=== PATIENT | female | born 1965 | race Caucasian/White ===

== ENCOUNTER 2020-09-01 05:30 | Outpatient (CLI) | payer OTHER, SELFPAY ==
[2020-09-01] VITALS (27 sets, daily range): BP systolic 143–185; BP diastolic 75–94; PULSE 78–103; RESP 12–30; TEMP 36.4–37.1; O2SAT 93–100
--- NOTE | ~2020-09-01 | CT_ITS ---
EXAMINATION: CT abdomen pelvis wo con EXAM DATE: 09/01/2020 06:08 INDICATION: Left flank pain. TECHNIQUE: Spiral CT of the abdomen and pelvis was performed without contrast. Axial, coronal and sag ittal images were reviewed. The dose-length product (DLP) for this examination was 1561.32 mGy-cm. The exposure was tailored according to patient size (auto mA exposure control), and iterative reconst ruction (ASIR) was used as additional dose reduction technique. Comparison is made to prior examinati on from 12/27/2016. FINDINGS: There is bilobulated density distal aspect left ureter, could be a 7 mm stone, or 2 contigu ous 3-4 mm stones. There is mild obstructive nephropathy. Additional left inferior calyceal 6 mm ston e and punctate 2 mm right inferior calyceal stone. The uterus is anteverted and morphologically melo l. The bladder is undistended at time of imaging. There is hepatic steatosis without suspicious fo mendoza lesion identified. Spleen, adrenal glands, pancreas are unremarkable. Gallbladder is unremarkabl e. No biliary obstruction. There is no retroperitoneal or pelvic lymphadenopathy. The appendix is not positively visualized. There is no pericecal inflammatory change to suggest appe ndicitis. The stomach and small bowel are unremarkable. Small duodenal diverticulum. There is expec jeannine amount of colonic stool. No free intraperitoneal gas. The heart is normal in size. There are no pericardial or pleural effusions. The lung bases are unremarkable. There are no osteoblastic or osteolytic lesions identified. IMPRESSION: 1. Stone or stones at left UVJ, region measuring 7 mm. Mild obstructive nephropathy. 2. Bilateral nephrolithiasis. 3. Small duodenal diverticulum. 4. Hepatic steatosis. Urologist consultants would appreciate KUB as baseline for follow-up, treatment planning. Reviewed, dictated and finalized at location [facility]. IMPRESSION: 1. Stone or stones at left UVJ, region measuring 7 mm. Mild obstructive nephro rj. 2. Bilateral nephrolithiasis. 3. Small duodenal diverticulum. 4. Hepatic steatosis. Urologist consultants would appreciate KUB as baseline for follow-up, treatment planning.
--- NOTE | ~2020-09-01 | XR_ITS ---
XR retrograde pyelogram LT DATE: 09/02/2020 16:18 INDICATION: Left kidney stone TECHNIQUE: Lateral right pyelogram images 26.2 seconds fluoroscopy time 919.59 radcm 2 COMPARISON: 09/01/2020 CT abdomen pelvis FINDINGS: Left ureter is catheterized ureterorenoscopy. There is moderate prominence of the left uret er. The left renal collecting system is not opacified. IMPRESSION: Limited examination revealing moderate left hydroureter Recommend reference to the urologist procedure report Reviewed, dictated and finalized at [facility]. Reviewed, dictated and finalized at location [facility].
[2020-09-01 05:57] LABS: Add Urine Microscopic? YES; Appearance Urine Cloudy (Clear); Bacteria Urine Trace /hpf; Bilirubin Urine Negative (Negative); Blood Urine 3+ (Negative); Calcium Oxalate Crystals Urine Present /hpf; Color Urine Amber (Yellow); Glucose Urine UA Negative (Negative); Ketones Urine Negative (Negative); Leukocyte Esterase Ur 1+ LEU/UL (Negative); Mucus Urine Few /lpf; Nitrate Urine Negative (Negative); Protein Urine 2+ mg/dL (Negative); RBC Urine >75 /hpf (0-2); Specific Grav Ur 1.024 (1.001-1.035); Squamous Epithelial Cell Urine Many /hpf (Few); WBC Urine 21-30 /hpf
--- NOTE | 2020-09-01 06:00 | ED.GENADULT ---
HPI - General Adult General Chief complaint: Nausea/Vomiting/Diarrhea Stated complaint: kidney stone Time Seen by Provider: 09/01/20 05:51 History of Present Illness HPI narrative: Patient is a 55-year-old female that presents to emergency department with chief complaint of left flank pain. The patient reports she has a long running history of kidney stones and has had required lithotripsy before in the past. Patient states been about 2 years since her last lithotripsy. Patient reports that she started having flank pain and has been unable to get comfortable patient states that she has noticed that it is difficult for her to urinate now and this feels exactly like whenever she has had stones before in the past patient does report that she has had some nausea and vomiting Related Data Allergies Allergy/AdvReac Type Severity Reaction Status Date / Time Penicillins Allergy Mild N/V - LONG - Verified 09/01/20 06:00 HIVES/RASH banana Allergy Unknown SWELLING - Verified 09/01/20 06:00 N/V watermelon Allergy Unknown LONG - N/V Verified 09/01/20 06:00 [place] Allergy Unknown SOB Uncoded 09/01/20 06:00 Review of Systems Review of Systems: Narrative: A 10 system review of systems was completed on the patient and is negative except for what is stated in the HPI. Nursing and ancillary documentation was reviewed. PMFSH Comments Past medical history significant for prior kidney stones requiring lithotripsy Social history the patient denies illicit drug use Exam Narrative: Exam Narrative: GENERAL: Well-appearing, well-nourished, and in no acute distress. HEAD: Normocephalic, atraumatic. EYES: PERRLA and EOMI. ENT: Nares clear, no rhinorrhea or epistaxis. Mucous membranes moist. NECK: Supple. CHEST: Clear to auscultation. No respiratory distress. HEART: Regular rate and rhythm. No murmur heard. Normal peripheral pulses. ABDOMEN: Soft, nontender, nondistended, normal active bowel sounds. EXTREMITIES: Normal range of motion. No edema. SKIN: Warm, dry, no rash. NEURO: No focal deficits. Alert and oriented x3. PSYCH: Normal mood and affect. Course Course Emergency Course: Patient CT scan showed a 7 mm stone. Patient was feeling better the case was discussed with patient's primary urologist who will take the patient to the operating room for procedural management of her kidney stone Vital Signs Vital signs: Vital Signs Temperature 36.4 C 09/01/20 05:38 Pulse Rate 78 09/01/20 05:38 Respiratory Rate 14 09/01/20 05:38 Blood Pressure 185/94 H 09/01/20 05:38 Pulse Oximetry 100 09/01/20 05:38 Temperature 37.1 C 09/01/20 06:42 Pulse Rate 81 09/01/20 06:39 Respiratory Rate 18 09/01/20 06:39 Blood Pressure 175/77 H 09/01/20 06:39 Pulse Oximetry 100 09/01/20 06:39 Medical Decision Making Vital Signs Vital Signs: Vital Signs Temperature 36.4 C 09/01/20 05:38 Pulse Rate 78 09/01/20 05:38 Respiratory Rate 14 09/01/20 05:38 Blood Pressure 185/94 H 09/01/20 05:38 Pulse Oximetry 100 09/01/20 05:38 Temperature 37.1 C 09/01/20 06:42 Pulse Rate 81 09/01/20 06:39 Respiratory Rate 18 09/01/20 06:39 Blood Pressure 175/77 H 09/01/20 06:39 Pulse Oximetry 100 09/01/20 06:39 Lab Data Result diagrams: 09/01/20 05:42 09/01/20 05:42 Labs: Lab Results 09/01/20 09/01/20 09/01/20 Range/Units 05:42 05:42 05:43 WBC 11.8 H (4.5-10.0) K/mm3 RBC 4.65 (4.2-5.4) M/mm3 Hgb 13.3 (12.0-15.0) g/dL Hct 40.6 (37.0-47.0) % MCV 87.3 (80-100) fl MCH 28.6 (26-34) pg MCHC 32.8 (32-36) g/dl RDW 13.4 (11.5-14.5) % Plt Count 380 H (150-375) k/mm3 MPV 10.3 (7.4-10.4) fl Immature Gran % (Auto) 0.3 (0-0.5) % Neut % (Auto) 55.2 (45.5-73.1) % Lymph % (Auto) 32.1 (18.3-44.2) % [place] % (Auto) 9.0 H (2.6-8.5) % Eos % (Auto) 2.9 (0-4.4) % Baso % (Auto) 0.5 (0.2-1.2) % Lymph
[2020-09-01 06:17] LABS: Alanine Aminotransferase 28 U/L (4-35); Albumin Level 4.9 g/dL (3.5-5.1); Alkaline Phosphatase 79 U/L (38-126); Anion Gap 11 mmol/L (8-16); Aspartate Amino Transferase 42 U/L (14-36); Basophils Absolute Auto 0.1 K/mm3 (0.0-0.1); Basophils Percent Auto 0.5 % (0.2-1.2); Bilirubin,Total 0.5 mg/dL (0.2-1.3); Blood Urea Nitrogen 10 mg/dL (7-17); Calcium 9.2 mg/dL (8.4-10.2); Carbon Dioxide 25 mmol/L (22-30); Chloride 102 mmol/L (98-107); Eosinophils Absolute Auto 0.3 K/mm3 (0-0.3); Eosinophils Percent Auto 2.9 % (0-4.4); Estimated CRCL calculation 127 ml/min; Estimated Glomerular Filt Rate > 60; Glucose 129 mg/dL (65-105); Hematocrit 40.6 % (37.0-47.0); Hemoglobin 13.3 g/dL (12.0-15.0); Immature Granulocyte Absolute 0.04 K/mm3 (0.00-0.031); Immature Granulocyte Percent A 0.3 % (0-0.5); Lipase 115 U/L (23-300); Lymphocytes Absolute Auto 3.78 K/mm3 (0.9-3.2); Lymphocytes Percent Auto 32.1 % (18.3-44.2); Mean Corpuscular HGB Conc 32.8 g/dl (32-36); Mean Corpuscular Hemoglobin 28.6 pg (26-34); Mean Corpuscular Volume 87.3 fl (80-100); Mean Platelet Volume 10.3 fl (7.4-10.4); Monocytes Absolute Auto 1.1 K/mm3 (0.1-0.6); Neutrophils Absolute Auto 6.5 K/mm3 (1.3-6.7); Neutrophils Percent Auto 55.2 % (45.5-73.1); Platelet Count Result 380 k/mm3 (150-375); Potassium 3.9 mmol/L (3.4-5.0); Red Blood Count 4.65 M/mm3 (4.2-5.4); Red Cell Distribution Width 13.4 % (11.5-14.5); Sodium 138 mmol/L (137-145); White Blood Count 11.8 K/mm3 (4.5-10.0)
[2020-09-01] MEDS: SODIUM CHLORIDE 0.9% IV 1,000 ML 999 ML IV CONT (06:17)
[2020-09-01] MEDS: ONDANSETRON INJ 4 MG/2 ML VIAL IV PUSH (06:18)
[2020-09-01] MEDS: HYDROmorphone HCL INJ (*CRX) 1 MG/ML SYR IV PUSH (06:18)
--- NOTE | 2020-09-01 07:26 | P.HP_ITS ---
History of Present Illness History of Present Illness Consent: Risks, benefits, and alternatives have been discussed and questions answered. Patient agrees to proceed with procedure. Chief complaint: kidney stone Narrative: Jes Neely is a 55 year old female with a history of recurring urolithiasis that has undergone both ESWL and endoscopic extraction in the past. Earlier this morning she awoke with acute left flank pain reminiscent of the urolithiasis. Imaging in the ER reveals an obstructing 7 mm left distal ureteral stone and a similar size nonobstructing left renal calculus. She has had nausea and vomiting but no fevers chills or gross hematuria. After discussion of options she elects to proceed with ureteroscopy with possible laser lithotripsy, ureteral stone extraction and possible ureteral stent placement. Review of Systems Cardiovascular: Cardiovascular: Denies chest pain, Denies lightheadedness, Denies palpitations and Denies dyspnea Respiratory: Respiratory: Denies dyspnea Gastrointestinal: Gastrointestinal: Denies diarrhea, Denies nausea and Denies vomiting Genitourinary: Genitourinary: Denies hematuria and Denies dysuria Endocrine: Endocrine: Denies palpitations Meds Home Medications and Allergies Allergies Allergy/AdvReac Type Severity Reaction Status Date / Time Penicillins Allergy Mild N/V - LONG - Verified 09/01/20 06:00 HIVES/RASH banana Allergy Unknown SWELLING - Verified 09/01/20 06:00 N/V watermelon Allergy Unknown LONG - N/V Verified 09/01/20 06:00 [place] Allergy Unknown SOB Uncoded 09/01/20 06:00 Vital Signs Vital Signs - 24 hr 09/01/20 05:38 09/01/20 06:39 09/01/20 06:42 Temperature 97.6 F 98.7 F Pulse Rate 78 81 Respiratory Rate 14 18 Blood Pressure 185/94 H 175/77 H Pulse Oximetry 100 100 Exam Const: General: no acute distress Resp: Effort & Inspection: normal respiratory effort GI: Inspection: non-distended GI Palp: No abdominal tenderness and No Guarding due to palpation present (GI) Auscultation: normal bowel sounds Assessment and Plan Assessment and plan (1) Left renal stone: Code(s): N20.0 - Calculus of kidney Status: Acute (2) Left ureteral stone: Code(s): N20.1 - Calculus of ureter Status: Acute Assessment and Plan: * Cystoscopy, left ureteroscopy with possible laser lithotripsy, ureteral stone extraction and possible ureteral stent placement
--- NOTE | 2020-09-01 11:35 | SUR.PREOP ---
Patient arrived into preop per stretcher. Refuses to sign consent because it includes a stent. Expressed intent to drive herself home after surgery and asks us to look the other way. Informed patient we will not do surgery if she has no ride home. Dr Gonzalez informed and will come speak with patient.
--- NOTE | 2020-09-01 13:37 | SUR.PREOP ---
Patient unable to arrange for a ride home so is discharge to drive self home without surgery. No signs of drowsiness from earlier pain medications.
== END 2020-09-02 14:10 | disposition home or self-care (01) ==
LOC: ANHED 07:19 → ANHSURGERY 07:20
PROVIDERS: Emergency Provider Emergency Medicine; PCP Internal Medicine; Visit Provider Urology
DX: K76.0 Fatty (change of) liver, not elsewhere classified (principal); K57.10 Diverticulosis of small intestine without perforation or abscess without bleeding; N20.2 Calculus of kidney with calculus of ureter
CPT/HCPCS: 36415; 74176; 74420; 80053; 81001; 81025; 83690; 85025; 87086; 87088; 96361; 96374; 96375; 99211; 99285; G0463; J1170; J2405; J7030

== ENCOUNTER 2020-09-02 14:30 | Day surgery (SDC) | payer OTHER, SELFPAY ==
[2020-09-02] VITALS (7 sets, daily range): BP systolic 120–159; BP diastolic 72–89; PULSE 76–92; RESP 16–18; TEMP 36.1–36.2; O2SAT 98–100; BMI 38.0; BMI 41.1
--- NOTE | 2020-09-02 15:17 | WPDANESEPPF ---
Anes - Initial Pre Proc Eval Procedure: Operation Date: 09/02/20 16:00 Proposed Procedures p Cystoscopy,Left Retrograde Pyelogram,Left Ureteroscopy,Left Stone Extraction, Possible Ureteral Stent Placement - Heber Gonzalez MD s Possible Holmium Laser Procedure - Heber Gonzalez MD Date/Time: 09/02/20 15:17 Surgeon: Heber Gonzalez MD Pre Op Diagnosis: Left Urethral Stone Patient Data Age: 55 Gender: F Height: 5 ft 4.5 in Weight: 110.3 kg Last Vital Signs Temp 36.1 C L 09/02/20 14:58 Pulse 92 09/02/20 14:58 Resp 18 09/02/20 14:58 BP 159/84 H 09/02/20 14:58 Pulse Ox 99 09/02/20 14:58 Allergies Allergy/AdvReac Type Severity Reaction Status Date / Time Penicillins Allergy Mild N/V - LONG - Verified 09/02/20 14:34 HIVES/RASH banana Allergy Unknown SWELLING - Verified 09/02/20 14:34 N/V watermelon Allergy Unknown LONG - N/V Verified 09/02/20 14:34 [place] Allergy Unknown SOB Uncoded 09/02/20 14:34 Home Medications Medication Instructions Recorded Confirmed Type ciprofloxacin HCl 500 mg PO Q12H #14 tablet 09/01/20 09/02/20 Rx hydrocodone-acetaminophen 1 - 2 tablet PO Q6H PRN #20 tablet 09/01/20 09/02/20 Rx Patient hx anesthesia problems: none Family hx anesthesia problems: none PMFSH Past Medical History Medical History (Updated 09/02/20 @ 15:18 by Lazaro Villalobos MD) Morbid obesity Surgical History Surgical History (Updated 09/02/20 @ 15:18 by Lazaro Villalobos MD) Hx of cystoscopy Social History Social History Smoking status: Never smoker Alcohol intake: never Substance use: never Substance use type: does not use Living arrangements: with family Spiritual care concerns: No Anes - Eval Final PreProcedure Day of Procedure 09/02/20 15:17 Patient weight: morbidly obese Heart: regular rate and rhythm Lungs: clear to auscultation Airway: Mallampati scale class II Neurological: alert and oriented Last oral intake: >/= 8 hours ASA classification: III Emergent: no Anesthetic plan: proceed Anesthesia type and monitoring: general LMA and standard monitoring Informed Consent: The patient's anesthetic plan and its attendant risks and benefits were discussed with the patient/family/POA. Questions were solicited and answers provided to the satisfaction of the patient/family/POA.
[2020-09-02] MEDS: LACTATED RINGERS 1,000 ML 30 ML IV CONT (15:25)
--- NOTE | 2020-09-02 15:44 | WPDHPUPDATE1 ---
History and Physical Update Update Date/Time: 09/02/20 15:44 History and Physical has been reviewed, including an updated exam of the patient. There are NO changes in the patient's condition. Risks, benefits, and alternatives have been discussed and questions answered. Patient agrees to proceed with procedure.
[2020-09-02] MEDS: levoFLOXacin 500 MG/D5W 100 ML 500 MG/100 ML BAG 100 MG IVPB (15:50)
[2020-09-02] MEDS: LIDOCAINE HCL 2% GEL UROJET 10 ML PKG MUCOUS MEM (16:03)
[2020-09-02] MEDS: KETOROLAC 30 MG/ML VIAL (*BKC) IV PUSH (16:11)
--- NOTE | 2020-09-02 16:19 | PM.PROC ---
Procedure Note - Detailed Date of procedure: 09/02/20 Pre-op diagnosis: Left Urethral Stone Post-op diagnosis: same (Spontaneously passed left distal ureteral calculus) Procedure performed: patient is brought to the operative suite where she has prepped draped in routine sterile fashion while in dorsal lithotomy position. 2% xylocaine jelly was introduced intraurethrally and systemic sedation is administered per the anesthesia department. Cystoscopy is undertaken with a 19 F rigid cystoscope. Bladder neck and urethra endoscopically normal. There is some edema and hyperemia of the intramural portion of the left ureter and left ureteral orifice. The remainder of the bladder was without hyperemia or mucosal abnormalities. A 0.035 in glidewire was advanced in the left renal pelvis and the distal ureter was dilated with an 8 F 10 F dilator. Ureteroscopy with a short tapered semi-rigid ureteral scope was undertaken to the left ureteropelvic junction and there are no ureteral calculi, suggesting that the patient has spontaneously passed her 7 mm distal stone. I did perform retrograde pyelogram and saw no obvious filling defects. Scopes wires removed the patient was taken recovery room in good condition Anesthesia: GLMA Surgeon: Heber Gonzalez MD Estimated blood loss (mL): 0 Drains: No Packing: No Pathology: none sent Complications: No immediate complications Condition: stable Disposition: PACU
--- NOTE | 2020-09-02 18:18 | SUR.PHASEII ---
1745: patient is unhooked from monitors and waiting for [facility]BER for ride home w/ daughter.
== END 2020-09-02 18:13 | disposition home or self-care (01) ==
PROVIDERS: PCP Internal Medicine; Visit Provider Urology
PROC: (CPT 52352; principal; 2020-09-02 16:00)
DX: N20.1 Calculus of ureter (principal); Z68.41 Body mass index [BMI] 40.0-44.9, adult; E66.01 Morbid (severe) obesity due to excess calories
CPT/HCPCS: 52005; A9270; C1769; J1100; J1885; J1956; J2250; J2405; J2704; J3010; J7120; Q9966

== ENCOUNTER 2021-01-21 17:54 | Emergency (ER) | payer OTHER, SELFPAY ==
[2021-01-21 18:00] VITALS: BP 174/96; PULSE 96; RESP 20; TEMP 35.8; O2SAT 98
[2021-01-21 19:21] VITALS: BP 170/88; PULSE 87; RESP 18; O2SAT 99
--- NOTE | 2021-01-21 20:49 | ED.WOUNDLAC ---
HPI - Wound/Laceration General Chief Complaint: Wound/Laceration Stated Complaint: finger laceration Time Seen by Provider: 01/21/21 19:50 Source: patient Mode of arrival: ambulatory Limitations: no limitations History of Present Illness HPI narrative: This is a 55 year old female that presents to the ER for laceration to the left 4th finger sustained just prior to arrival. Reports she accidentally cut her finger with hedge trimmers. Does involve a distal portion of the nail. She is not up to date on tetanus. Denies decreased ROM or numbness. Related Data Allergies Allergy/AdvReac Type Severity Reaction Status Date / Time Penicillins Allergy Mild N/V - LONG - Verified 01/21/21 19:21 HIVES/RASH banana Allergy Unknown SWELLING - Verified 01/21/21 19:21 N/V watermelon Allergy Unknown LONG - N/V Verified 01/21/21 19:21 [place] Allergy Unknown SOB Uncoded 01/21/21 19:21 Review of Systems Review of Systems: CONSTITUTIONAL: Denies fever SKIN: Reports laceration MUSCULOSKELETAL: Denies joint pain, or myalgia. NEUROLOGIC: Denies numbness All systems reviewed & are unremarkable except as noted in HPI and below PMFSH Past Medical History Medical History (Updated 01/21/21 @ 21:56 by Katharina Muhammad PA-C) Morbid obesity Surgical History Surgical History (Updated 09/02/20 @ 15:18 by Lazaro Villalobos MD) Hx of cystoscopy Social History Social History Smoking status: Never smoker Alcohol intake: never Substance use: never Substance use type: does not use Spiritual care concerns: No Exam Narrative: GENERAL: Well-appearing, well-nourished, and in no acute distress. HEAD: Normocephalic, atraumatic. EYES: EOMI. EXTREMITIES: Normal range of motion. No edema. 1cm linear laceration into subcutaneous tissue to the tip of the left 4th finger, does involve a small portion of the distal nail. Normal radial pulses. Normal sensation SKIN: Warm, dry, no rash. NEURO: No focal deficits. Alert and oriented x3. PSYCH: Normal mood and affect Course Vital Signs Vital signs: Vital Signs Temperature 96.5 F L 01/21/21 18:00 Pulse Rate 96 01/21/21 18:00 Respiratory Rate 20 01/21/21 18:00 Blood Pressure 174/96 H 01/21/21 18:00 Pulse Oximetry 98 01/21/21 18:00 Temperature 96.5 F L 01/21/21 18:00 Pulse Rate 87 01/21/21 19:21 Respiratory Rate 18 01/21/21 19:21 Blood Pressure 170/88 H 01/21/21 19:21 Pulse Oximetry 99 01/21/21 19:21 Procedures Laceration Laceration 1: Date: 01/21/21 Time: 21:56 Site: hand Side (If applicable): left Size (cm): 1 Description: linear Depth: simple, single layer Local Anesthetic: lidocaine 1% Amount of anesthesia used (mL): 3 Pre-repair: irrigated ====== Skin Level ====== Skin layer closed with: nylon Size (cm): 4-0 Number of sutures: 2 Technique: simple, interrupted ====== Subcutaneous Layer ====== ====== Muscle Layer ====== ====== Tendon Layer ====== MDM - Wound/Laceration MDM Narrative Medical decision making narrative: Patient presents to the ER for laceration to the left 4th finger sustained just prior to arrival. Does involve a small portion of the distal part of the nail. Wound was cleansed and closed with sutures. She was updated on tetanus. She was educated on wound care. She is to follow up with her PCP. She was given warnings to return to the ER Critical Care Time Critical Care Time Critical Care Time: No Discharge Plan Discharge Clinical Impression: Laceration Patient Disposition: Home, Self-Care Condition: Stable Instructions: Care For Your Stitches (ED), Laceration (ED) Additional Instructions: Return to the emergency department if you experience fever, redness or swelling of your wound, abnormal drainage from your wound, or any other symptoms that are
[2021-01-21] MEDS: TETANUS,DIPHTHERIA,AC PERTUSSIS ADULT (0.5 ML) BOOSTRIX IM (21:25)
== END 2021-01-21 22:07 | disposition home or self-care (01) ==
PROVIDERS: Emergency Provider Emergency Medicine; PCP Internal Medicine
DX: S61.215A Laceration without foreign body of left ring finger without damage to nail, initial encounter (principal); Z23 Encounter for immunization; E66.01 Morbid (severe) obesity due to excess calories; Z68.37 Body mass index [BMI] 37.0-37.9, adult; W27.1XXA Contact with garden tool, initial encounter
CPT/HCPCS: 12001; 90471; 90715; 99282

== ENCOUNTER 2021-08-07 20:51 | Observation (INO) | payer OTHER, SELFPAY ==
--- NOTE | ~2021-08-07 | XR_ITS ---
XR abdomen/kub 1V 08/08/2021 01:02 Indication: Renal stones Procedure: KUB Comparison: CT dated 08/07/2021 Findings: Stone in the lower pole of the left kidney is visualized. There is a stone at the L3 level on the left consistent with left UPJ stone, although size underestimated compared with CT. Right alta l stone not appreciated on this examination. Bowel gas pattern nonobstructive. Impression: 1: Left renal and UPJ stones. Reviewed, dictated and finalized at location [facility]. Impression: 1: Left renal and UPJ stones.
--- NOTE | ~2021-08-07 | CT_ITS ---
EXAMINATION: CT abdomen pelvis wo con EXAM DATE: 08/07/2021 23:00 INDICATION: Left flank pain. History kidney stones. TECHNIQUE: Spiral CT of the abdomen and pelvis was performed without contrast. Axial, coronal and sag ittal images were reviewed. The dose-length product (DLP) for this examination was 679.41 mGy-cm. T he exposure was tailored according to patient size (auto mA exposure control), and iterative reconstr uction (ASIR) was used as additional dose reduction technique. Comparison is made to prior examinatio n from 09/01/2020. FINDINGS: There is a 1 cm stone at the left ureteropelvic junction with mild left-sided obstructive nephropathy. Additional punctate left inferior calyceal stones. There is a 3 x 5 mm right inferior ca lyceal stone. The uterus is unremarkable. The bladder is unremarkable. The liver, spleen, adrenal glands and schultz creas are unremarkable. Gallbladder is unremarkable. No biliary obstruction. There is no retroperi toneal or pelvic lymphadenopathy. There are no findings to suggest appendicitis. There is small duodenal diverticulum. There is expec jeannine amount of colonic stool. No free intraperitoneal gas. The heart is normal in size. There are no pericardial or pleural effusions. The lung bases are unremarkable. There are no osteoblastic or osteolytic lesions identified. IMPRESSION: 1. Left UPJ 1 cm stone, mild obstructive nephropathy. Baseline KUB recommended. 2. Bilateral nephrolithiasis. 3. Small duodenal diverticulum. Reviewed, dictated and finalized at location . IMPRESSION: 1. Left UPJ 1 cm stone, mild obstructive nephropathy. Baseline KUB recommended . 2. Bilateral nephrolithiasis. 3. Small duodenal diverticulum.
--- NOTE | 2021-08-07 21:10 | PC.NURSE ---
Pt walked outside prior to triage, stating she felt sick.
[2021-08-07 21:23] VITALS: BP 142/74; PULSE 78; RESP 19; TEMP 36.4; O2SAT 100
[2021-08-07 21:45] LABS: Basophils Absolute Auto 0.1 K/mm3 (0.0-0.1); Basophils Percent Auto 0.5 % (0.2-1.2); Eosinophils Absolute Auto 0.2 K/mm3 (0-0.3); Eosinophils Percent Auto 1.4 % (0-4.4); Hematocrit 40.7 % (37.0-47.0); Immature Granulocyte Absolute 0.04 K/mm3 (0.00-0.031); Immature Granulocyte Percent A 0.3 % (0-0.5); Lymphocytes Absolute Auto 2.22 K/mm3 (0.9-3.2); Lymphocytes Percent Auto 16.8 % (18.3-44.2); Mean Corpuscular HGB Conc 31.9 g/dl (32-36); Mean Corpuscular Hemoglobin 28.6 pg (26-34); Mean Corpuscular Volume 89.5 fl (80-100); Mean Platelet Volume 10.2 fl (7.4-10.4); Monocytes Absolute Auto 0.8 K/mm3 (0.1-0.6); Monocytes Percent Auto 6.1 % (2.6-8.5); Neutrophils Absolute Auto 9.9 K/mm3 (1.3-6.7); Neutrophils Percent Auto 74.9 % (45.5-73.1); Platelet Count Result 363 k/mm3 (150-375); Red Blood Count 4.55 M/mm3 (4.2-5.4); Red Cell Distribution Width 13.2 % (11.5-14.5); White Blood Count 13.2 K/mm3 (4.5-10.0)
[2021-08-07 21:54] LABS: Alanine Aminotransferase 22 U/L (4-35); Albumin Level 4.7 g/dL (3.5-5.1); Alkaline Phosphatase 112 U/L (38-126); Anion Gap 7 mmol/L (8-16); Aspartate Amino Transferase 31 U/L (14-36); Bilirubin,Total 0.2 mg/dL (0.2-1.3); Blood Urea Nitrogen 16 mg/dL (7-17); Calcium 9.2 mg/dL (8.4-10.2); Carbon Dioxide 29 mmol/L (22-30); Chloride 101 mmol/L (98-107); Estimated CRCL calculation 92 ml/min; Estimated Glomerular Filt Rate > 60; Glucose 155 mg/dL (65-110); Potassium 4.4 mmol/L (3.4-5.0); Sodium 137 mmol/L (137-145)
--- NOTE | 2021-08-07 23:25 | ED.ABDPAIN ---
HPI - Abdominal Pain General Chief Complaint: Abdominal Pain Stated Complaint: Left flank pain see ag for kidney stones Time Seen by Provider: 08/07/21 22:53 Source: patient Mode of arrival: ambulatory Limitations: no limitations History of Present Illness HPI narrative: Patient is a 56-year-old female who presents the ED with report of left flank pain. Patient reports a history of kidney stones with her last occurrence 1 year ago[address] She sees Dr. Gonzalez, but has seen other providers in their group. She mentions she has required lithotripsies in the past. States she was supposed to have a routine appointment with Dr. Gonzalez last Saturday but her appointment got rescheduled. Tonight around 7 PM while she was working remotely she had sudden onset of pain in her left flank, radiating around to her left lower abdomen. She also reported having nausea, vomiting, and difficulty emptying her bladder. She denies any pain or burning with urination or any notable hematuria. No fever, chills, diarrhea, constipation, chest pain, shortness of breath. Related Data Allergies Allergy/AdvReac Type Severity Reaction Status Date / Time Penicillins Allergy Mild N/V - LONG - Verified 01/21/21 19:21 HIVES/RASH banana Allergy Unknown SWELLING - Verified 01/21/21 19:21 N/V watermelon Allergy Unknown LONG - N/V Verified 01/21/21 19:21 [place] Allergy Unknown SOB Uncoded 01/21/21 19:21 Review of Systems Review of Systems: CONSTITUTIONAL: Denies fever, chills, or sweats. CARDIOVASCULAR: Denies chest pain. RESPIRATORY: Denies cough or dyspnea. GASTROINTESTINAL: Reports L lower abd pain, nausea, vomiting. Denies constipation, diarrhea. GENITOURINARY: Reports trouble emptying bladder. Denies dysuria or hematuria. SKIN: Denies rash or itching. MUSCULOSKELETAL: Reports left flank pain. Denies joint pain, or myalgia. NEUROLOGIC: Denies headache, numbness, or weakness. All systems reviewed & are unremarkable except as noted in HPI and below PMFSH Past Medical History Medical History (Updated 08/08/21 @ 02:05 by Jana Fraire PA-C) Diabetes mellitus Hyperlipidemia Hypertension Morbid obesity Nephrolithiasis Surgical History Surgical History (Updated 08/07/21 @ 23:28 by Jana Fraire PA-C) History of lithotripsy Hx of cystoscopy Social History Social History Smoking status: Never smoker Alcohol intake: never Substance use: never Substance use type: does not use Spiritual care concerns: No Exam Narrative: GENERAL: Well-nourished, non-toxic, diaphoretic, in mild acute distress. HEAD: Normocephalic, atraumatic. NECK: Supple. No adenopathy, no masses. RESPIRATORY: Airway patent, respirations nonlabored. Clear to auscultation bilaterally, no rales, rhonchi, wheezing. CARDIOVASCULAR: Regular rate and rhythm without murmurs, rubs, or gallops. Peripheral pulses 2+ and equal bilaterally. ABDOMINAL: Soft, LLQ tenderness to palpation, nondistended, no hepatosplenomegaly. Normoactive BS. L CVA tenderness to percussion. MUSCULOSKELETAL: Moves all extremities. Strength/ROM intact without gross deformities or TTP. No edema. SKIN: Warm, normal color. No rashes. NEURO: A&O X3. Speech clear. Cranial nerves II-XII grossly intact. Steady gait. No ataxic movements. PSYCHIATRIC: Appropriate mood and affect. Normal interaction. Course Consultations Consultation #1: Spoke with Dr. Ac, urology, patient presentation and work-up. Recommends keeping n.p.o. Pain control as needed. Date: 08/08/21 Time: 00:33 Consultation #2: Discussed with Dr. Nunez, hospitalist patient presentation and workup. Agrees with admission at this time. Date: 08/08/21 Time: 01:53 Vital Signs Vital signs: Vital Signs Temperature 97.6 F 08/07/21 21:23 Pulse Rate 78 08/07/21 21:23 Respiratory Rate 19 08/07/21 21:23 Blood Pressure 142/74 H 08/07/21 21:23 Pulse Oximetry 100 08/07/21 21:23
[2021-08-07] MEDS: ONDANSETRON INJ 4 MG/2 ML VIAL IV PUSH (23:31)
[2021-08-07] MEDS: MORPHINE SULFATE (*CRX) 4 MG/ML INJ IV PUSH (23:31)
[2021-08-07] MEDS: SODIUM CHLORIDE 0.9% IV 1,000 ML 999 ML IV CONT (23:32)
[2021-08-07 23:41] VITALS: BP 163/88; O2SAT 98
[2021-08-07 23:42] VITALS: O2SAT 97
[2021-08-07 23:45] VITALS: O2SAT 93
[2021-08-07 23:46] VITALS: BP 162/72; O2SAT 96
[2021-08-08] VITALS (11 sets, daily range): BP systolic 145–173; BP diastolic 67–80; PULSE 80–97; RESP 16–24; TEMP 36.3–36.6; O2SAT 96–99; BMI 39.6
[2021-08-08 01:29] LABS: Add Urine Microscopic? YES; Appearance Urine Clear (Clear); Bacteria Urine Trace /hpf; Bilirubin Urine Negative (Negative); Blood Urine 3+ (Negative); Color Urine Yellow (Yellow); Glucose Urine UA Negative (Negative); Ketones Urine Trace mg/dL (Negative); Leukocyte Esterase Ur Negative LEU/UL (Negative); Mucus Urine Rare /lpf; Nitrate Urine Negative (Negative); Protein Urine Negative (Negative); RBC Urine 21-50 /hpf (0-2); Specific Grav Ur 1.016 (1.001-1.035); Squamous Epithelial Cell Urine Occasional /hpf (Few); Urobilinogen Urine Negative mg/dL (<2.0); WBC Urine 0-3 /hpf
[2021-08-08] MEDS: HYDROmorphone HCL INJ (*CRX) 1 MG/ML SYR 0.5 MG IV PUSH (01:36)
[2021-08-08] MEDS: METOCLOPRAMIDE HCL INJ 10 MG/2 ML VIAL IV PUSH (01:37)
--- NOTE | 2021-08-08 04:00 | ADMGEN ---
This patient, Jes Neely, was admitted to Medical Room 256-. Patient/family oriented to hospital policies and general routines including ID bracelet, bed and alarms, visiting hours, pain management, procedures, bathroom and other care routines, personal items, smoking policy, room service/diet, and visiting hours. Information on how to activate the Rapid Response Team has been discussed. Patient/Family are encouraged to report perceived risks to care and to ask questions if they do not understand what they are told or what they should do.
[2021-08-08] MEDS: SODIUM CHLORIDE 0.9% IV 1,000 ML 125 ML IV CONT ×2 (04:15→11:48)
--- NOTE | 2021-08-08 07:33 | PM.IMHP ---
H&P: HPI History of Present Illness Date/Time: 08/08/21 07:33 Review of Systems Review of Systems: All systems reviewed & are unremarkable except as noted in HPI and below PMFSH Past Medical History Medical History (Updated 08/08/21 @ 07:44 by MARIKA Davis) Diabetes mellitus Hyperlipidemia Hypertension Morbid obesity Nephrolithiasis Surgical History Surgical History (Updated 08/07/21 @ 23:28 by Jana Fraire PA-C) History of lithotripsy Hx of cystoscopy Family History Family History (Updated 08/08/21 @ 04:41 by Martin Farooq RN) Mother Sleep apnea CHF (congestive heart failure) Osteoporosis Diabetes mellitus Father Diabetes mellitus CHF (congestive heart failure) Factor 5 Leiden mutation, heterozygous Renal failure Cerebrovascular accident Sibling Factor 5 Leiden mutation, heterozygous Social History Social History Smoking status: Never smoker Alcohol intake: never Substance use: never Substance use type: does not use Spiritual care concerns: No Meds Home Medications and Allergies Home Medications Medication Instructions Recorded Confirmed Type amlodipine 10 mg PO DAILY 08/08/21 08/08/21 History atorvastatin 20 mg PO HS 08/08/21 08/08/21 History fexofenadine-pseudoephedrine 1 tablet PO DAILY 08/08/21 08/08/21 History [Venessa-D 24 Hour] metformin 500 mg PO DAILY 08/08/21 08/08/21 History Allergies Allergy/AdvReac Type Severity Reaction Status Date / Time Penicillins Allergy Mild N/V - LONG - Verified 08/08/21 04:17 HIVES/RASH banana Allergy Unknown SWELLING - Verified 08/08/21 04:17 N/V watermelon Allergy Unknown LONG - N/V Verified 08/08/21 04:17 [place] Allergy Unknown SOB Uncoded 01/21/21 19:21 Vital Signs Vital Signs - 24 hr 08/07/21 21:23 08/07/21 23:41 08/07/21 23:42 Temperature 97.6 F Pulse Rate 78 Respiratory Rate 19 Blood Pressure 142/74 H 163/88 H Pulse Oximetry 100 98 97 08/07/21 23:45 08/07/21 23:46 08/08/21 00:00 Temperature Pulse Rate Respiratory Rate Blood Pressure 162/72 H Pulse Oximetry 93 96 96 08/08/21 00:01 08/08/21 00:15 08/08/21 00:47 Temperature Pulse Rate Respiratory Rate Blood Pressure 173/80 H Pulse Oximetry 96 99 98 08/08/21 01:01 08/08/21 03:18 08/08/21 03:19 Temperature Pulse Rate Respiratory Rate Blood Pressure 164/78 H Pulse Oximetry 97 98 98 08/08/21 03:21 Temperature Pulse Rate 89 Respiratory Rate 16 Blood Pressure Pulse Oximetry Exam Const: General: cooperative, healthy appearing, no acute distress, well developed, alert and awake Nutritional Appearance: well nourished Orientation/consciousness: patient oriented x3 Limitations: no limitations HENMT: Head: normal to inspection Ears: hearing grossly normal bilaterally General nose exam: Normal external nose present Mouth: Yes Normal oral and palatal mucosa present, Yes lip normal and Yes tongue normal Teeth and gingiva: abnormal tooth and associated gingiva and poor dentition Eyes: General: appearance normal, both eyes and all related structures Neck: Neck: normal visual inspection, full ROM, trachea midline and supple Chest: Chest palpation & inspection: normal inspection of the chest Resp: Effort & Inspection: normal respiratory effort and able to speak in complete sentences Auscultation: clear to auscultation bilaterally Cardio: Jugular venous distension: no JVD Rate: regular rate Rhythm: regular rhythm Heart sounds: S1 normal heart sound present and S2 normal heart sound present Peripheral pulses: Peripheral pulses 2+ throughout GI: Inspection: normal to inspection GI Palp: Yes Soft to palpation and No Tenderness to palpation present (GI) Auscultation: normal bowel sounds Skin: General skin exam: normal color and no rashes or lesions noted Lesions: no lesions Rashes: no rashes Trau
[2021-08-08 08:10] LABS: Glucose Point of Care 124 mg/dl (65-105)
[2021-08-08] MEDS: amLODIPine BESYLATE 5 MG TABLET 10 MG PO (09:26)
[2021-08-08] MEDS: LORATADINE/PSEUDOEPHEDRINE (*CRX) 10/240 MG TABLET ER 24 HR 1 TAB PO (09:26)
--- NOTE | 2021-08-08 11:02 | PM.SD2 ---
Same Day Admit/Disch: HPI History of Present Illness Chief complaint: L ureteral stone Narrative: Jes Neely is a 56 year old female with past medical history of diabetes, hyperlipidemia, hypertension, and multiple kidney stones who presented to the ED with left-sided flank pain. Patient states she was working remote and she started to get back spasms and pain in her left back that did radiate to her front abdomen. Patient stated that she was starting to have multiple episodes of nausea vomiting to the point to where the vomiting was uncontrollable and she was unable to eat or sleep. Patient stated that she has had this issue before and has had have multiple lithotripsies in the past. Patient is followed by Dr. Gonzalez. Urology has been consulted. Patient did state that the pain medications were helping her and she was able to not vomit at this time. Patient did have other social issues which she thinks that helping her to create the kidney stones. She denies any chest pain, shortness of breath, nausea, vomiting, diarrhea, constipation, weakness, fatigue. On a side note patient did state that she had labs done recently which did not come back to good. Patient also stated that she had been on metformin and amlodipine in the past and has taken herself off of them. Patient stated that she has never been diagnosed with diabetes however she stated her A1c was not very good in her doctor wanted her to do morbid diet controlled. She also stated that she has had a lipid panel in the past and was on a statin drug however she has not been taking that as well. She did start her regimen back due to her labs not being in control. Patient is being admitted to the hospital service under observation [facility] Past Medical History Medical History Diabetes mellitus Hyperlipidemia Hypertension Morbid obesity Nephrolithiasis Surgical History Surgical History History of lithotripsy Hx of cystoscopy Family History Family History Mother Sleep apnea CHF (congestive heart failure) Osteoporosis Diabetes mellitus Father Diabetes mellitus CHF (congestive heart failure) Factor 5 Leiden mutation, heterozygous Renal failure Cerebrovascular accident Sibling Factor 5 Leiden mutation, heterozygous Social History Social History Social History: Patient lives in the area with her daughter and her daughter will be her surrogate at this time. Patient wishes to be a full code. Smoking status: Never smoker Alcohol intake: never Substance use: never Substance use type: does not use Additional occupation/education comments: Remote working Gender identity (if verbalized by the patient): Female Sexual Orientation (if Verbalized by the Patient): Straight or Heterosexual Spiritual care concerns: No Agree to blood products: Yes Same Day Admit/Disch: Med Pre-admit Medications Home Medications Medication Instructions Recorded Confirmed Type amlodipine 10 mg PO DAILY 08/08/21 08/08/21 History atorvastatin 20 mg PO HS 08/08/21 08/08/21 History fexofenadine-pseudoephedrine 1 tablet PO DAILY 08/08/21 08/08/21 History [Venessa-D 24 Hour] hydrocodone-acetaminophen 1 tablet PO Q6H PRN #20 tablet 08/08/21 Rx metformin 500 mg PO DAILY 08/08/21 08/08/21 History ondansetron 4 mg PO Q6H PRN #20 tablet 08/08/21 Rx Exam Const: General: cooperative, healthy appearing, no acute distress, well developed, alert and awake Nutritional Appearance: well nourished Orientation/consciousness: patient oriented x3 Limitations: no limitations HENMT: Head: normal to inspection Ears: hearing grossly normal bilaterally General nose exam: Normal external nose present Mouth: Yes Normal oral and palatal mucosa pres
[2021-08-08 11:36] LABS: Glucose Point of Care 122 mg/dl (65-105)
--- NOTE | 2021-08-08 11:47 | WPDURCON ---
Assessment and Plan Assessment and plan (1) Left ureteral stone: Code(s): N20.1 - Calculus of ureter Status: Acute Assessment and Plan: We offered to do a Cystoscopy, left ureteroscopy with stent placement and retrograde pyelogram this afternoon with Dr. Ac, however the patient refuses and wants to wait for an ESWL. She has had a stent in the past and didn't tolerate it. I instructed her that if she could eat a regular diet and tolerate her pain on oral pain meds and zofran for nausea, she could go home this afternoon and be scheduled for a left ESWL later this week as an outpatient. She agrees with this plan. Cancel NPO diet, I changed her to clear liquids. She will need a urine culture in preparation for her lithotripsy this week. If she tolerates her clear liquids for lunch she can advance to a regular diet. Ok to discharge home if tolerating pain on [place] 5/235mg q 4-6 PRN and Zofran. We will schedule her ESWL as an outpatient this week. (2) Bilateral kidney stones: Code(s): N20.0 - Calculus of kidney Status: Acute Assessment and Plan: These are of no emergent importance at this time, we will address these stones at a later date. Urology Consult Note HPI Date Seen: 08/08/21 Requesting Physician: Yohana Nunez MD Primary Care Provider: Addy IbarraMD Consult Narrative Narrative: Jes Neely is a 56 year old female who presented to the ER last night with acute onset of left flank pain that radiated to her LLQ, accompanied by nausea and vomiting. 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 She has a history of kidney stones since she was in grade school. Most recently she had a left ureteral stone with cystoscopy in 08/[address] Gonzalez, but her stone had spontaneously passed. She has also had many lithotripsies and stents placed over the years. Her CT scan reveals a 1cm left UPJ stone, punctate left renal stones and a right 3x5mm non obstructive stone. Her KUB does visualize her stones. UA shows 3+ RBC's present, but is otherwise normal. She denies dysuria or gross hematuria. She has been NPO since arrival. Her pain is improved after Dilaudid and Zofran for nausea and vomiting. She is afebrile and has a WBC of 13.2 and creatinine of 0.70. Review of Systems Cardiovascular: Cardiovascular: Reports no additional cardiovascular complaints Respiratory: Respiratory: Reports no additional respiratory complaints Gastrointestinal: Gastrointestinal: Reports abdominal pain, Reports nausea and Reports vomiting Genitourinary: Genitourinary: Denies hematuria, Denies dysuria, Denies pelvic pain, Reports flank pain, Denies urinary incontinence, Denies urinary hesitancy and Reports urinary urgency [facility] Past Medical History Medical History Diabetes mellitus Hyperlipidemia Hypertension Morbid obesity Nephrolithiasis Surgical History Surgical History History of lithotripsy Hx of cystoscopy Family History Family History Mother Sleep apnea CHF (congestive heart failure) Osteoporosis Diabetes mellitus Father Diabetes mellitus CHF (congestive heart failure) Factor 5 Leiden mutation, heterozygous Renal failure Cerebrovascular accident Sibling Factor 5 Leiden mutation, heterozygous Social History Social History Social History: Patient lives in the area with her daughter and her daughter will be her surrogate at this time. Patient wishes to be a full code. Smoking status: Never smoker Alcohol intake: never Substance use: never Substance use type: does not use Additional occupation/education comments: Remote working Gender identity (if verbalized by the patient): Female
--- NOTE | 2021-08-08 12:51 | PC.NURSE ---
On 08/08/21 [employer] student Hannah Lundberg assessed and provided care for this patient. I have checked her documentation in [facility] and I agree with her assessment.
[2021-08-08 16:40] LABS: Glucose Point of Care 126 mg/dl (65-105)
== END 2021-08-08 17:30 | disposition home or self-care (01) ==
LOC: ANHED 08-08 02:05 → ANH2MED 08-08 07:31
PROVIDERS: Admitting Provider Internal Medicine; Emergency Provider Emergency Medicine; PCP Internal Medicine; Visit Provider Nurse Practitioner
DX: N20.2 Calculus of kidney with calculus of ureter (principal); N13.8 Other obstructive and reflux uropathy; D72.829 Elevated white blood cell count, unspecified; I10 Essential (primary) hypertension; E11.9 Type 2 diabetes mellitus without complications; E78.5 Hyperlipidemia, unspecified; E66.01 Morbid (severe) obesity due to excess calories; Z68.39 Body mass index [BMI] 39.0-39.9, adult
CPT/HCPCS: 36415; 74018; 74176; 80053; 81001; 82948; 85025; 87086; 96361; 96374; 96375; 99285; A9270; G0378; J1170; J2270; J2405; J2765; J7030

== ENCOUNTER 2021-08-11 00:53 | Day surgery (SDC) | payer OTHER, SELFPAY ==
[2021-08-09 12:08] VITALS: BMI 39.0
--- NOTE | 2021-08-09 12:25 | PC.NURSE ---
Report to the Outpatient Waiting Room, entrance under the green pavilion located off [facility], at time 1130 on date 08/11/21. OR Time: 1330. - You and your visitor will be asked a series of questions to screen for COVID 19 for your protection. - A mask is required within the hospital. One visitor will be allowed to accompany the patient into the hospital. Patients visitor will be instructed to remain with patient at all times or leave the building. We will allow the visitor to come back to the postoperative area when patient is ready. Preoperative COVID Testing Requirements: TO E-MAIL COPY OF CARD No COVID Test needed if: (proof is required; if not received patient will have Rapid Test prior to entry) - Patient has received COVID Vaccine at least 14 days prior to procedure date or - Patient has positive COVID test result within last 90 days of surgery date. COVID Test needed if above criteria is not met Patients may have clear liquids (water, carbonated beverages, clear teas, apple juice) until 3 hours prior to surgery with a maximum of 20 ounces. - No food from midnight until time of surgery Take the following medications with a SIP of water the morning of surgery: PAIN PILL (IF NEEDED) Medications to discontinue per physician: N/A Date to take last dose: N/A Please no make-up, nail danish, hairspray, perfume, deodorant, or body powder the day of surgery. No jewelry (including any body piercings) or valuables the day of surgery, leave them at home. Please take a shower or bath the night before, or the morning of, surgery with an antibacterial soap. Wear comfortable, loose fitting clothing. - Jewelry must be removed prior to entering the operating room. Rings and piercings that are not removed may be cut off. - The hospital will not accept responsibility for valuables. - Please leave all valuables, including medications, at home the day of surgery. If you are going home after surgery, a licensed personal driver must drive you home. - NO public transportation without another adult. - We recommend that an adult stay with you for 24 hours following discharge. - We also recommend that you do not drive, make important decision, drink alcoholic beverages, or take any drugs that were not prescribed by your health care provider for at least 24 hours after your discharge time. Follow any additional instructions given to you from your surgeon. Telephone instructions given to CHALO SABA and asked if any additional questions and then verbalized understanding. Patient advised to call surgeon office or pre surgery nurse liaison [phone] if any additional questions.
[2021-08-11] VITALS (8 sets, daily range): BP systolic 122–151; BP diastolic 63–82; PULSE 64–86; RESP 12–24; TEMP 36.1–36.4; O2SAT 92–100
--- NOTE | ~2021-08-11 | XR_ITS ---
EXAMINATION: XR abdomen/kub 1V INDICATION: Urolithiasis TECHNIQUE: Supine views of the abdomen were obtained on 2 radiographs. COMPARISON: 08/08/2021 FINDINGS: A 12 mm stone projects in the left proximal ureter between the left L3 and L4 transverse pr ocesses. There is a 4 mm stone of the left kidney lower pole. The bowel gas pattern is normal. The vi sualized lung bases are clear. There is mild osteoarthritis of the hips. IMPRESSION: 1. 12 mm stone in the left proximal ureter. Left nephrolithiasis. Reviewed, dictated and finalized at location B.
--- NOTE | 2021-08-11 06:17 | ECG_ITS ---
Measurements Intervals [place] Rate: 72 P: -62 MS: 165 QRS: 1 QRSD: 96 T: 8 QT: 385 QTc: 423 Interpretive Statements ECTOPIC ATRIAL RHYTHM MODERATE VOLTAGE CRITERIA FOR LVH, CONSIDER NORMAL VARIANT [MEETS CRITERIA IN ONE OF: R(aVL), S(V1), R(V5), R(V5/V6)+S(V1)] ABNORMAL RHYTHM ECG NO PREVIOUS ECG AVAILABLE FOR COMPARISON Electronically Signed On 08-11-2021 16:25:39 CDT by David Winston M.D.
--- NOTE | 2021-08-11 10:51 | WPDHPUPDATE1 ---
History and Physical Update Update Date/Time: 08/11/21 10:51 History and Physical has been reviewed, including an updated exam of the patient. There are NO changes in the patient's condition. Risks, benefits, and alternatives have been discussed and questions answered. Patient agrees to proceed with procedure. Proceed with lithotripsy of left ureteral calculus
[2021-08-11] MEDS: LACTATED RINGERS 1,000 ML 30 ML IV CONT (11:15)
[2021-08-11 11:24] LABS: Glucose Point of Care 129 mg/dl (65-105)
--- NOTE | 2021-08-11 11:25 | WPDANESEPPF ---
Anes - Initial Pre Proc Eval Procedure: Operation Date: 08/11/21 12:30 Proposed Procedures p Left Ureteral Extracorporeal Shock Wave Lithotripsy - Get Ac MD Date/Time: 08/11/21 11:25 Surgeon: Get Ac MD Pre Op Diagnosis: left ureteral stone Patient Data Age: 56 Gender: F Height: 1.65 m Weight: 106.5 kg Allergies Allergy/AdvReac Type Severity Reaction Status Date / Time Penicillins Allergy Mild N/V - LONG - Verified 08/09/21 12:06 HIVES/RASH banana Allergy Unknown SWELLING - Verified 08/09/21 12:06 N/V watermelon Allergy Unknown LONG - N/V Verified 08/09/21 12:06 [place] Allergy Unknown SOB Uncoded 08/09/21 12:06 Home Medications Medication Instructions Recorded Confirmed Type amlodipine 10 mg PO HS 08/08/21 08/09/21 History atorvastatin 20 mg PO HS 08/08/21 08/09/21 History fexofenadine-pseudoephedrine 1 tablet PO DAILY 08/08/21 08/09/21 History [Venessa-D 24 Hour] hydrocodone-acetaminophen 1 tablet PO Q6H PRN #20 tablet 08/08/21 08/09/21 Rx metformin 500 mg PO DAILY 08/08/21 08/09/21 History ondansetron 4 mg PO Q6H PRN #20 tablet 08/08/21 08/09/21 Rx Laboratory Tests 08/11/21 11:20 POC Capillary Glucose 129 mg/dl H mg/dl (65-105) Patient hx anesthesia problems: none Family hx anesthesia problems: post op nausea/vomiting Results Review: All pre-operative results and documents have been reviewed as part of the pre-operative evaluation. [facility] Past Medical History Medical History Diabetes mellitus Hyperlipidemia Hypertension Morbid obesity Nephrolithiasis Surgical History Surgical History History of lithotripsy Hx of cystoscopy Family History Family History Mother Sleep apnea CHF (congestive heart failure) Osteoporosis Diabetes mellitus Father Diabetes mellitus CHF (congestive heart failure) Factor 5 Leiden mutation, heterozygous Renal failure Cerebrovascular accident Sibling Factor 5 Leiden mutation, heterozygous Social History Social History Social History: Patient lives in the area with her daughter and her daughter will be her surrogate at this time. Patient wishes to be a full code. Smoking status: Never smoker Alcohol intake: never Substance use: never Substance use type: does not use Living arrangements: with family Additional living arrangements comments: DAUGHTER Additional occupation/education comments: Remote working Gender identity (if verbalized by the patient): Female Sexual Orientation (if Verbalized by the Patient): Straight or Heterosexual Spiritual care concerns: No Agree to blood products: Yes Anes - Eval Final PreProcedure Day of Procedure 08/11/21 11:25 Patient weight: obese Heart: regular rate and rhythm Lungs: clear to auscultation Airway: Mallampati scale class II Neurological: alert and oriented Last oral intake: >/= 8 hours ASA classification: III Emergent: no Anesthetic plan: proceed Anesthesia type and monitoring: general LMA and standard monitoring Results Review: All pre-operative results and documents have been reviewed as part of the pre-operative evaluation. Informed Consent: The patient's anesthetic plan and its attendant risks and benefits were discussed with the patient/family/POA. Questions were solicited and answers provided to the satisfaction of the patient/family/POA.
[2021-08-11 11:39] LABS: Partial Thromboplastin Time 28.7 SECONDS (22.3-36.8)
[2021-08-11 11:45] LABS: Prothrombin Time 12.5 Seconds (11.1-14.7)
[2021-08-11] MEDS: ceFAZolin 2 GM/D5W 50 ML 2 GM/50 ML BAG IVPB (12:03)
--- NOTE | 2021-08-11 12:38 | W.PM.PROC2 ---
Procedure Note - Detailed Date of Procedure 08/11/21 Pre-op Diagnosis left ureteral stone Post-op Diagnosis Same Procedure Performed Lithotripsy of left ureteral calculus Surgeon Get Ac MD Anesthesia General Description of Procedure Patient is taken the operative suite correctly identified. Once anesthesia was obtained the sodium was localized in both planes. Three thousand shocks were given to the stone. Patient tolerated procedure well without any complications is taken recovery stable condition. She will follow up in about 7-10 days with KUB. Drains No Packing No Pathology None sent Complications No immediate complications Condition Stable Disposition PACU
[2021-08-11 13:03] LABS: Glucose Point of Care 124 mg/dl (65-105)
--- NOTE | 2021-08-11 13:17 | SUR.PHASEI ---
1317: simple mask removed.
--- NOTE | 2021-08-11 14:39 | SUR.PHASEII ---
PT LEFT WITH DAUGHTER WHP BROUGHT AN UBER TO CREW CHIEF.
== END 2021-08-11 14:30 | disposition home or self-care (01) ==
PROVIDERS: PCP Internal Medicine; Visit Provider Urology
PROC: (CPT 50590; principal; 2021-08-11 12:30)
DX: N20.1 Calculus of ureter (principal); E11.9 Type 2 diabetes mellitus without complications; E78.5 Hyperlipidemia, unspecified; I10 Essential (primary) hypertension; E66.9 Obesity, unspecified; Z68.39 Body mass index [BMI] 39.0-39.9, adult; Z79.84 Long term (current) use of oral hypoglycemic drugs
CPT/HCPCS: 50590; 36415; 74018; 82948; 85610; 85730; 93005; J0690; J1100; J2405; J2704; J7120

== ENCOUNTER 2021-08-24 09:17 | Outpatient (CLI) | payer OTHER, SELFPAY ==
--- NOTE | ~2021-08-24 | XR_ITS ---
EXAMINATION: XR abdomen/kub 1V DATE: 08/24/2021 09:48 INDICATION: Left ureteral stone. TECHNIQUE: A supine view of the abdomen on 2 radiographs was obtained. COMPARISON: Abdomen radiographs 08/11/2021, CT abdomen and pelvis 08/07/2021 FINDINGS: There are no dilated loops of bowel. There are phleboliths in the pelvis. There is a 4 mm s tone in proximal left ureter at L3. IMPRESSION: 1. 4 mm stone in proximal left ureter. Reviewed, dictated and finalized at location A.
== END 2021-08-24 09:18 | disposition home or self-care (01) ==
PROVIDERS: PCP Internal Medicine; Visit Provider Urology
DX: N20.1 Calculus of ureter (principal)
CPT/HCPCS: 74018